=== PATIENT | male | born 1950 | race Caucasian/White ===

== ENCOUNTER 2017-05-10 05:08 | Inpatient (IN) | payer MEDICARE, OTHER ==
[~2017-05-10] VITALS: Ht 186.7 cm; Wt 81.9 kg
[2017-05-10] MEDS ORDERED: LACTATED RINGER'S 1000 ML IV PRN (05:30)
[2017-05-10] MEDS ORDERED: ceFAZolin 2 GM PREMIX 50 ML IV SCH (05:30)
[2017-05-10] MEDS ORDERED: SODIUM CHLORID 0.9% 500 ML IV PRN (05:30)
[2017-05-10] MEDS ORDERED: METOPROLOL TARTRATE 25 MG TAB PO PRN (05:30)
[2017-05-10] MEDS ORDERED: POVIDONE IODINE 5% (ANTISEPSIS KIT) 4 APPLICATIONS EACH NARE PRN (05:30)
[2017-05-10] MEDS ORDERED: CHLORHEXIDINE GLUCONATE 2 % 1 PACK (2 CLOTHS) TOPICAL PRN (05:30)
[2017-05-10] MEDS ORDERED: METF1000 PO (05:54)
[2017-05-10] MEDS ORDERED: PIOG30TA4 PO (05:59)
[2017-05-10] MEDS ORDERED: VITA1000 PO (05:59)
[2017-05-10] MEDS ORDERED: ATOR40TA16 PO (05:59)
[2017-05-10] MEDS ORDERED: CYAN100025 SL (05:59)
[2017-05-10] MEDS ORDERED: ASPI1TAB57 PO (05:59)
[2017-05-10 06:34] LABS: PROTHROMBIN TIME - PATIENT 10.3 SEC (9.8-11.6)
[2017-05-10] MEDS ORDERED: HYDROmorphone HCL PF 2 MG/ML VIAL ONE (06:54)
[2017-05-10] MEDS ORDERED: ACETAMINOPHEN 1000 MG/100 ML 100 ML IV ONE (07:10)
[2017-05-10] MEDS ORDERED: SUGAMMADEX SODIUM 200 MG/2 ML VIAL IV PUSH ONE (07:10)
[2017-05-10] MEDS ORDERED: RESP: ALBUTEROL 2.5 MG/3 ML NEB (SCH) ONE (07:11)
[2017-05-10] MEDS ORDERED: DEXAMETHASONE SOD PHOS 4 MG/ML VIAL IV ONE (12:00)
[2017-05-10] MEDS ORDERED: SODIUM CHLORID 0.9% 500 ML INJ 500 ML IV ONE (12:00)
[2017-05-10] MEDS ORDERED: SODIUM CHLOR 0.9% 250 ML INJ 250 ML IV ONE (12:00)
[2017-05-10] MEDS ORDERED: PHENYLEPH/NS 1000 MCG/10 ML SYR IV ONE (12:00)
[2017-05-10] MEDS ORDERED: PROPOFOL 200 MG/20 ML AMP IV ONE (12:00)
[2017-05-10] MEDS ORDERED: PHENYLEPHRINE HCL 10 MG/ML VIAL IV ONE (12:00)
[2017-05-10] MEDS ORDERED: ceFAZolin INJ 1,000 MG VIAL IV ONE (12:00)
[2017-05-10] MEDS ORDERED: ePHEDrine/NS 25 MG/5 ML SYRINGE IV ONE (12:00)
[2017-05-10] MEDS ORDERED: LACTATED RINGER'S 1000 ML INJ 1,000 ML IV ONE (12:00)
[2017-05-10] MEDS ORDERED: ROCURONIUM INJ 50 MG/5 ML SYRINGE IV PUSH ONE (12:00)
[2017-05-10] MEDS ORDERED: SODIUM CHLOR 0.9% 1000 ML INJ 2,000 ML IV ONE (12:00)
[2017-05-10] MEDS ORDERED: GLYCOPYRROLATE 1 MG/5 ML SYRINGE IV PUSH ONE (12:00)
[2017-05-10] MEDS ORDERED: LIDOCAINE HCL 1% PF 5 ML SYRINGE OTHER ONE (12:00)
[2017-05-10] MEDS ORDERED: NEOSTIGMINE 5 MG/5 ML SYRINGE IV PUSH ONE (12:00)
[2017-05-10] MEDS ORDERED: ONDANSETRON HCL 4 MG/2 ML VIAL IV ONE (12:00)
--- NOTE | 2017-05-10 12:58 | HHI.PR ---
Immediate Post Op Note Procedure Date: May 10, 2017 Pre Op Diagnosis: High Risk [place] 8 CaP Post Op Diagnosis: Surgeon: Marcos Flowers Vending Machine Assembler(s): Dr. Otoniel Stover Procedure: Robotic Assisted Laparoscopic Radical Prostatectomy with Pelvic Lymphadenectomy Complications: none Specimen(s) removed: Prostate, Lymph nodes Anesthesia: General Drains: GUIDO Fluids: 2200 IVF Patient to: PACU Patient Condition: Good Marcos Flowers MD May 10, 2017 12:58
[2017-05-10] MEDS ORDERED: KETOROLAC TROMETHAMINE 30 MG/ML (IVP) VIAL IV PUSH PRN ×2 (13:00→14:45)
[2017-05-10] MEDS ORDERED: ONDANSETRON HCL 4 MG/2 ML VIAL IV PUSH PRN (13:00)
[2017-05-10] MEDS ORDERED: MIDAZOLAM HCL 2 MG/2 ML VIAL ONE (13:37)
[2017-05-10] MEDS ORDERED: *ONDANSETRON 4 MG VIAL PERIprocedural Use ONLY ONE (13:42)
[2017-05-10 13:47] LABS: AUTOMATED NEUTROPHIL # 15.9 TH/MM3 (1.8-7.7); BASOPHIL # 0.1 TH/MM3 (0-0.2); BASOPHIL % 0.4 % (0.0-2.0); HEMATOCRIT 39.4 % (39.0-51.0); HEMOGLOBIN 13.4 GM/DL (13.0-17.0); LYMPH % 5.3 % (9.0-44.0); LYMPHOCYTE # 0.9 TH/MM3 (1.0-4.8); MEAN CELL VOLUME 91.4 FL (80.0-100.0); MEAN CORPUSCULAR HEMOGLOBIN 31.1 PG (27.0-34.0); MEAN PLATELET VOLUME 7.7 FL (7.0-11.0); MONO % 3.6 % (0.0-8.0); MONOCYTE # 0.6 TH/MM3 (0-0.9); NEUT % 90.7 % (16.0-70.0); PLATELET COUNT 290 TH/MM3 (150-450); RED BLOOD COUNT 4.31 MIL/MM3 (4.50-5.90); RED CELL DISTRIBUTION WIDTH 14.4 % (11.6-17.2); WHITE BLOOD COUNT 17.5 TH/MM3 (4.0-11.0)
[2017-05-10] MEDS: ACETAMINOPHEN 1000 MG/100 ML 100 ML IV SCH ×2 (14:00→18:34)
[2017-05-10] MEDS: SODIUM CHLOR 0.9% 1000 ML INJ 1,000 ML IV SCH ×2 (14:00→21:03)
[2017-05-10] MEDS: PANTOPRAZOLE SODIUM 40 MG VIAL IV PUSH SCH (14:00)
[2017-05-10 14:10] LABS: BICARBONATE 21.2 MEQ/L (21.0-32.0); CALCIUM 8.1 MG/DL (8.5-10.1); CREATININE 1.4 MG/DL (0.60-1.30)
[2017-05-10 14:27] LABS: BANDS 14 % (0-6); LYMPHOCYTES 5 % (9-44); MONOCYTES 5 % (0-8); NEUTROPHIL # MANUAL DIFF 15.8 TH/MM3 (1.8-7.7); POLYS (SEG NEUTROPHILS) 76 % (16-70)
--- NOTE | 2017-05-10 14:39 | EKG ---
Date Performed: 05/10/2017 Time Performed: 06:21:10 PTAGE: 66 years EKG: Sinus rhythm WITH OCCASIONAL SUPRAVENTRICULAR PREMATURE COMPLEXES MODERATE INTRAVENTRICULAR CONDUCTION DELAY BORD FARAZ ECG NO PREVIOUS TRACING DOCTOR: Marisel Cárdenas Interpretating Date/Time 05/10/2017 14:32:15
[2017-05-10] MEDS ORDERED: DO NOT ADM ANY ANTICOAGULANT DRUGS PRN (14:45)
[2017-05-10] MEDS ORDERED: TETRACAINE 0.5% OPTH SOLN 4 ML BTL ONE (15:34)
[2017-05-10] MEDS ORDERED: TETRACAINE 0.5% OPTH SOLN 2 ML BTL EACH EYE ONE (16:30)
[2017-05-10 20:00] VITALS: BP 129/61; PULSE 74; RESP 20; TEMP 97.6; O2SAT 96
[2017-05-10] MEDS: DOCUSATE SODIUM 100 MG CAP PO SCH (21:00)
[2017-05-11] VITALS: BP 112/59; PULSE 67; RESP 18; TEMP 98.5; O2SAT 93
[2017-05-11] MEDS: ACETAMINOPHEN 1000 MG/100 ML 100 ML IV SCH ×3 (00:25→13:06)
[2017-05-11 04:00] VITALS: BP 129/58; PULSE 75; RESP 20; TEMP 98.2; O2SAT 94
[2017-05-11] MEDS: SODIUM CHLOR 0.9% 1000 ML INJ 1,000 ML IV SCH (05:38)
[2017-05-11 06:21] LABS: HEMATOCRIT 39.4 % (39.0-51.0); HEMOGLOBIN 13.3 GM/DL (13.0-17.0); MEAN CELL VOLUME 91.3 FL (80.0-100.0); MEAN CORPUSCULAR HEMOGLOBIN 30.7 PG (27.0-34.0); MEAN CORPUSCULAR HGB CONC 33.6 % (32.0-36.0); PLATELET COUNT 255 TH/MM3 (150-450); RED BLOOD COUNT 4.32 MIL/MM3 (4.50-5.90); RED CELL DISTRIBUTION WIDTH 14.8 % (11.6-17.2); WHITE BLOOD COUNT 11.3 TH/MM3 (4.0-11.0)
[2017-05-11 06:50] LABS: BICARBONATE 25.7 MEQ/L (21.0-32.0); CALCIUM 8.1 MG/DL (8.5-10.1); CREATININE 1.21 MG/DL (0.60-1.30)
--- NOTE | 2017-05-11 07:36 | HHI.PR ---
Subjective Patient symptoms today had some left hand numbness overnight but improving. Has appetite. Pain well controlled. Has not been OOB. Denies CP/SOB/N/V/flatus/Fevers. Objective Vital Signs Vital Signs Date Time Temp Pulse Resp B/P (MAP) Pulse Ox O2 Delivery O2 Flow Rate FiO2 05/11/17 04:00 98.2 75 20 129/58 (81) 94 05/11/17 00:00 98.5 67 18 112/59 (76) 93 05/10/17 20:00 97.6 74 20 129/61 (83) 96 05/10/17 16:30 60 16 120/58 (78) 95 Room Air 05/10/17 16:00 60 16 108/56 (73) 95 Room Air 05/10/17 15:30 62 16 126/58 (80) 96 Room Air 05/10/17 15:00 58 16 109/59 (76) 98 05/10/17 14:30 56 16 107/59 (75) 97 Nasal Cannula 2 05/10/17 14:15 54 16 118/57 (77) 95 Nasal Cannula 2 05/10/17 14:00 64 16 96/51 (66) 97 Nasal Cannula 2 05/10/17 13:45 66 16 118/60 (79) 95 Nasal Cannula 2 05/10/17 13:30 86 16 112/60 (77) 95 Nasal Cannula 2 05/10/17 13:22 97.6 86 16 109/55 (73) 94 Nasal Cannula 2 Intake & Output 05/11/17 05/11/17 07:00 19:00 Intake Total 2020 ml Output Total 2550 ml Balance -530 ml Intake Oral 720 ml IV Total 1300 ml Output Urine Total 2500 ml Drainage Total 50 ml Result Diagram: 05/11/1753705/11/17537 Objective Remarks NAD. A/O x 3 RRR CTAB abd soft, mild distension, NT. inc c/d/i Urine clear GUIDO sanguinous Ext NT, no edema. EPC cuffs on and working Medications and IVs Current Medications Medications (Trade) Dose Ordered Sig/Fito Route Start Time Stop Time Status Last Admin Cefazolin Sodium/ Dextrose 50 ml @ 150 mls/hr FACING CUTTING MACHINE OPERATOR IV 05/10/17 05:30 05/13/17 05:29 05/10/17 06:57 (Lopressor) 25 mg FACING CUTTING MACHINE OPERATOR PRN PO 05/10/17 05:30 05/13/17 05:29 (Betadine 5% Antisepsis Kit) 1 applic FACING CUTTING MACHINE OPERATOR PRN EACH NARE 05/10/17 05:30 05/13/17 05:29 05/10/17 06:30 (Chlorhexidine 2% Cloth) 3 pack FACING CUTTING MACHINE OPERATOR PRN TOPICAL 05/10/17 05:30 05/13/17 05:29 05/10/17 05:30 Acetaminophen 100 ml @ 400 mls/hr Q6H IV 05/10/17 13:00 05/11/17 05:29 (Zofran Inj) 4 mg Q6HR PRN IV PUSH 05/10/17 13:00 (Protonix Inj) 40 mg Q24H IV PUSH 05/10/17 13:00 05/10/17 14:00 (Colace) 100 mg BID PO 05/10/17 21:00 (Roxicodone) 10 mg Q6H PRN PO 05/10/17 13:00 Sodium Chloride 1,000 ml @ 125 mls/hr Q8H IV 05/10/17 13:00 05/11/17 05:38 (Toradol Inj) 15 mg Q6H PRN IV PUSH 05/10/17 14:45 05/15/17 14:44 Miscellaneous Information ALL NURSING DEPARTME... UNSCH PRN .XX 05/10/17 14:45 05/11/17 14:44 Assessment and Plan Assessment and Plan POD #1 s/p Robotic Radical Prostatectomy -Hgb stable. -Advance diet -Hep lock -Ambulate, IS -Good uop. -Check GUIDO Creatinine. -Possible home later today. Marcos Flowers MD May 11, 2017 07:36
[2017-05-11] MEDS ORDERED: TRAM50TA PO ×2 (07:38→07:40)
[2017-05-11] MEDS ORDERED: DOCU1CAP39 PO (07:38)
[2017-05-11 08:00] VITALS: BP 146/70; PULSE 84; RESP 19; TEMP 97.2; O2SAT 98
[2017-05-11] MEDS: DOCUSATE SODIUM 100 MG CAP PO SCH (08:54)
[2017-05-11] MEDS ORDERED: PIOGLITAZONE HCL 30 MG TAB PO SCH (09:00)
[2017-05-11] MEDS ORDERED: metFORMIN HCL 500 MG TAB PO SCH (09:00)
[2017-05-11] MEDS ORDERED: CHOLECALCIFEROL (VIT D3) 1000 UNIT TAB PO SCH (09:00)
[2017-05-11] MEDS ORDERED: ASPIRIN EC 81 MG TABEC PO SCH (10:00)
[2017-05-11 12:00] VITALS: BP 142/69; PULSE 84; RESP 17; TEMP 97.9; O2SAT 97
[2017-05-11] MEDS ORDERED: CYANOCOBALAMIN 1,000 MCG TAB PO SCH (12:00)
[2017-05-11] MEDS: PANTOPRAZOLE SODIUM 40 MG VIAL IV PUSH SCH (13:07)
--- NOTE | 2017-05-11 15:58 | HHI.DS ---
Discharge Summary Admission Date May 10, 2017 at 12:57 Discharge Date: May 11, 2017 Admitting Diagnosis [place] 8 Prostate Cancer Procedures Robotic Radical Prostatectomy with Pelvic Lymph node Dissection CBC/BMP: 05/11/17 0538 05/11/17 0538 Significant Findings Laboratory Tests Test 05/10/17 06:00 05/10/17 13:35 05/11/17 05:38 05/11/17 11:45 White Blood Count 17.5 TH/MM3 (4.0-11.0) 11.3 TH/MM3 (4.0-11.0) Red Blood Count 4.31 MIL/MM3 (4.50-5.90) 4.32 MIL/MM3 (4.50-5.90) Neutrophils (%) (Auto) 90.7 % (16.0-70.0) Lymphocytes (%) (Auto) 5.3 % (9.0-44.0) Neutrophils # (Auto) 15.9 TH/MM3 (1.8-7.7) Lymphocytes # (Auto) 0.9 TH/MM3 (1.0-4.8) Neutrophils % (Manual) 76 % (16-70) Band Neutrophils % 14 % (0-6) Lymphocytes % 5 % (9-44) Neutrophils # (Manual) 15.8 TH/MM3 (1.8-7.7) Creatinine 1.40 MG/DL (0.60-1.30) Random Glucose 175 MG/DL (74-106) 150 MG/DL (74-106) Calcium Level 8.1 MG/DL (8.5-10.1) 8.1 MG/DL (8.5-10.1) Estimat Glomerular Filtration Rate 50 ML/MIN (>89) 60 ML/MIN (>89) Hospital Course 66 yo male with [place] 8 CaP was admitted following a Robotic Radical Prostatectomy. His hospital course was uncomplicated. His pain was well controlled. He did not have much output from his GUIDO drain. There was no evidence of a leak so the drain was removed. He was discharged home on POD#[address] with cook catheter in place. Pt Condition on Discharge: Good Discharge Disposition: Discharge Home Discharge Instructions DIET: Follow Instructions for: Heart Healthy Diet Activities you can perform: Shower Only-No Bath Activities to avoid: Strenuous Activity Additional Activity Instructio: No heavylifting greater than 15 lbs x 4 weeks New Medications: Tramadol (Tramadol) 50 Mg Tab 50 MG PO Q6H PRN for PAIN for 7 Days, #28 TAB 0 Refills Tramadol (Tramadol) 50 Mg Tab 50 MG PO Q6H PRN for PAIN for 7 Days, #28 TAB 0 Refills Docusate Sodium (Dok) 100 Mg Cap 100 MG PO BID for Constipation for 7 Days, #14 CAP Continued Medications: Aspirin DR (Aspirin 81) 81 Mg Tabdr 81 MG PO DAILY, TAB 0 Refills Atorvastatin (Atorvastatin) 40 Mg Tab 40 MG PO HS for Cholesterol Management, TAB 0 Refills Cholecalciferol (Vitamin D-1000) 1,000 Unit Tab 1000 UNITS PO DAILY for Nutritional Supplement, BOTTLE 0 Refills Cyanocobalamin (B-12) 1,000 Mcg Subl 1000 MCG SL DAILY for Nutritional Supplement, TAB.SL 0 Refills Metformin (Metformin) 1,000 Mg Tab 1000 MG PO BIDPC for Blood Sugar Management, TAB 0 Refills Pioglitazone (Pioglitazone) 30 Mg Tab 30 MG PO DAILY for Blood Sugar Management, TAB 0 Refills Marcos Flowers MD May 11, 2017 15:58
[2017-05-11] MEDS ORDERED: ATORVASTATIN 40 MG TAB PO SCH (21:00)
--- NOTE | 2017-05-12 11:06 | MP ---
cc: MIGUEL MARTINEZ M.D., EVAN M. MD DATE OF SURGERY 05/10/2017 PREOPERATIVE DIAGNOSIS High-risk [place] 8 prostate cancer POSTOPERATIVE DIAGNOSIS High-risk [place] 8 prostate cancer PROCEDURE PERFORMED Robotic-assisted laparoscopic radical prostatectomy with pelvic lymph node dissection. SURGEON Marcos Flowers MD INSURANCE PROCESSOR Otoniel Stover MD ANESTHESIA General COMPLICATIONS None PREOPERATIVE ANTIBIOTICS Ancef 2 grams IV DRAINS 1. A 10-Slov[place] Javier drain 2. A 20-Sl[place] Dennis catheter SPECIMEN 1. Prostate 2. Seminal vesicles 3. Anterior prostate fat 4. Pelvic lymph nodes BLOOD LOSS 150 mL FLUIDS 2200 crystalloid DISPOSITION Stable to recovery. INDICATIONS The patient is a 56-year-old male with a history of elevated PSA. He had a prostate biopsy done in which 1 out of 20 cores showed a [place] 8 prostate cancer. He was then seen by Dr. Emperatriz canales who did a metastatic workup on him which was negative. He was then referred for a robotic prostatectomy. Treatment options were discussed including robotic prostatectomy versus radiation plus hormone therapy. Advantages, disadvantages, potential side effects each were explained including the risk of erectile dysfunction, urinary incontinence, potential rectal injury and bladder leak. He elected to proceed with robotic-assisted laparoscopic radical prostatectomy. After the risks, benefits and alternatives were explained, the patient elected to proceed and informed consent was obtained. DETAILS OF THE PROCEDURE The patient was properly identified, brought back to the operating room and laid supine on the operating room table. A proper time-out was performed. Under the direction of anesthesiology, the patient was induced under general anesthetic. Preoperative antibiotics in the form of Ancef 2 grams one hour of the start of the procedure. The patient was then prepped and draped in the normal sterile surgical fashion. A 16-Slov[place] Dennis catheter was placed under sterile technique. Clear yellow urine returned. He was placed in the dorsolithotomy position. Just lateral to the right side of the umbilicus, a stab incision was made. A Veress needle was then inserted to gain access to the abdominal cavity. Pneumoperitoneum was achieved. A 12 long camera port was then carefully placed after extending the incision into the abdominal cavity. LABORATORY DATA A laparoscope was then carefully inserted into the abdominal cavity. It was carefully inspected. There was no evidence of any intraabdominal injury or blood in the abdomen. At this time, five other ports were then placed under direct visualization including two 8 mm robotic ports on the left side a handbreadth away from each other starting from the umbilicus, a 12-mm assistant clinical nurse manager port on the right side two fingerbreadths superior to the ASIS, an 8-mm robotic port that was placed a handbreadth away from the camera port and then a 5-mm sucker port that was triangulated between the camera port and the right robotic port. Again, all ports were placed under direct visualization. At this time, the robot was then brought into position. The sigmoid adhesions from the colon were then taken down on both the left and right side. At this time, the bladder was taken down in standard fashion to gain access to the retropubic space. The anterior fat off the prostate was then removed to expose the prostate and its anatomical landmarks. This was then collected and sent off to the pathologist. At this time, the endopelvic fascia was entered on each side and carefully dissected off and sweeping the pelvic muscles away towards the apex of the prostate. At this time, the DBC was identified. A 1-0 V-Loc was then used to ligate the dorsal vein complex. This was then brought through as a suspension suture to the pubic bone. At this point, we then dissected the bladder off of the prostate through the anterior bladder neck. There was no evidence of a median lobe. The bladder neck appeared to be quite tight and normal size. The Dennis catheter was then deflated and brought through the prostate. This was then retracted anteriorly to the pubic bone for retraction. I then developed the posterior bladder neck. The bladder was checked and there was no evidence of any buttonholing. I then developed posterior to Denonvilliers fascia. This exposed the seminal vesicles. Each seminal vesicle was then dissected out all the way to the tip with each vesicle being divided. These were then retracted anterior to expose the posterior Denonvilliers. The rectum was then carefully dissected off the backside of the prostate all the way to the apex. There is no evidence of a rectal injury. At this time, each pedicle was taken on the right and left side with Hem-o-shelton clips all the way to the apex of the prostate. At this point, I then divided the DVC to mobilize the prostate down to the level of the urethra. The urethra was then divided with cold cut scissors, as well as the rectourethralis. At this point, the prostate was completely free and was placed in the right paracolic gutter. Hemostasis was then achieved. The prostatic fossa was then irrigated out. There was no evidence of any bleeding. The rectum appeared to be intact. At this time, I then did a pelvic lymph node dissection on both the right and the left side. The right side was standard fashion. The iliac vein was carefully identified. The mira packet was then stripped down off of the obturator nerve. The obturator nerve remained intact. On the left side, the anatomy was slightly distorted as he did appear to have a left inguinal hernia. A small amount of tissue was sent off from the left side, however, the nerve was never clearly seen due to the distorted anatomy. At this point, I then did the vesical urethral anastomosis using a double-armed 4-0 Stratafix. The posterior portion was ran first to align the bladder with the urethra. A Kerwin stitch was not used during this case. The vesical urethral anastomosis appeared to be watertight with the running suture. It was then tied down anteriorly. The catheter balloon was then inflated to 20 cc and placed on traction. At this point, three grams of [place] were then used for hemostatic purposes. The prostate was then placed in an EndoCatch bag for extraction at the end of the case. The robotic port arm was removed and a 10-Slovak Javier drain was then passed through the port. At this point, all ports were then removed under direct visualization. The camera port incision was carefully extended and the prostate was extracted through this incision. It was then closed with a running 0 Vicryl stitch. All skin incisions were then closed with Monocryl. The drain was secured with a nylon stitch. Sponge, needle counts were correct at the end of the case. The patient was then explained and sent to recovery in stable condition and transferred to floor for routine postop care. MD MIKE Carr/GERALD /3:59 PM /10:35 AM
== END 2017-05-11 15:21 | disposition home or self-care (01) | DRG 708 ==
LOC: HSDC 05:08 → EDSTATUS 07:30 → HSDI 12:57 → N07A 16:56
PROVIDERS: ADMIT Urology; ATTEND Urology
PROC: 07BC4ZZ Excision of Pelvis Lymphatic, Percutaneous Endoscopic Approach (ICD-10-PCS; 2017-05-10)
PROC: 8E0W4CZ Robotic Assisted Procedure of Trunk Region, Percutaneous Endoscopic Approach (ICD-10-PCS; 2017-05-10)
PROC: 0T9B70Z Drainage of Bladder with Drainage Device, Via Natural or Artificial Opening (ICD-10-PCS; 2017-05-10)
PROC: 0VT04ZZ Resection of Prostate, Percutaneous Endoscopic Approach (ICD-10-PCS; principal; 2017-05-10 07:25)
DX: C61 Malignant neoplasm of prostate (principal)
CPT/HCPCS: 80048; 82570; 85007; 85027; 85610; 86850; 86900; 86901; 86920; 88305; 88307; 88309; 93005; 94664; C9113; J0131; J0690; J1100; J1170; J2250; J2370; J2405; J2710; J3010; J7030; J7040; J7050; J7120; J7613